=== PATIENT | male | born 1955 | race Hispanic/Latino ===

== ENCOUNTER → 2020-01-02 | Day surgery (SDC) | payer BC, OTHER ==
[~2020-01-02] MED LIST: AMLODIPINE BESY10 MG PO; ETOMIDATE 2 MG/ML 10 ML INJ IV ONE; FENOFIBRATE145 MG PO; HYOSCYAMINE 0.125 MG TAB ONE; LIDOCAINE HCL 2% LOCAL INJ 5 ML SDV VIAL INJ ONE; PROPOFOL IV EMULSION 10 MG/ML 20 ML VIAL ONE
[2020-01-02 09:30] VITALS: BP 122/76
--- NOTE | 2020-01-02 10:03 | Operative Report ---
DATE OF PROCEDURE: 01/02/2020 SURGEON: Lyndon Abernathy MD PROCEDURE: Colonoscopy with polypectomy. INDICATIONS FOR COLONOSCOPY: Colorectal cancer screening. MEDICATIONS: The patient was done under MAC, please see anesthesiologist's note. DESCRIPTION OF PROCEDURE: The patient in left lateral decubitus position, a flexible fiberoptic Olympus colonoscope was inserted into the rectum with ease and advanced all the way to the cecum. It was then withdrawn slowly. Mucosa overlying the cecum and ascending colon appeared to be within normal limits. A minute polyp approximately 3 mm in size was removed from the distal transverse colon per the cold biopsy forceps. An approximately 5 mm sessile polyp was removed per hot snare polypectomy from the descending colon. A single diverticulum was noted in the distal sigmoid. The rectum appeared to be within normal limits. The scope was then retroflexed into the distal rectum and moderate-sized internal hemorrhoids were noted, none of which was actively bleeding. The scope was then straightened out, it was subsequently withdrawn and patient tolerated the procedure well. IMPRESSION: 1. Transverse colon polyp approximately 3 mm in size, removed per the cold biopsy forceps. 2. Descending colon polyp approximately 5 mm in size, hot snared. 3. Single diverticulum, distal sigmoid colon. 4. Internal hemorrhoids, none actively bleeding. PLAN: Follow up histology. Initiate high-fiber, low-fat diet. Initiate high-fiber supplement. The patient might benefit from a followup colonoscopy in 3 to 5 years. Lyndon Abernathy MD [facility] [place][id number] cc: Jorge Osei MD
== END | disposition home or self-care (01) ==
LOC: OR 07:02
PROVIDERS: ATTEND Internal Medicine Gastroenterology
DX: Z12.11 Encounter for screening for malignant neoplasm of colon (principal); D12.4 Benign neoplasm of descending colon; D12.3 Benign neoplasm of transverse colon; K57.30 Diverticulosis of large intestine without perforation or abscess without bleeding; K64.8 Other hemorrhoids; K59.09 Other constipation; I10 Essential (primary) hypertension; Z01.810 Encounter for preprocedural cardiovascular examination; Z01.812 Encounter for preprocedural laboratory examination; Z11.59 Encounter for screening for other viral diseases; Z68.32 Body mass index [BMI] 32.0-32.9, adult
CPT/HCPCS: 45380; 45385; 93005; J2001; J2704; U0002; 45378; 45384